=== PATIENT | female | born 1940 | race Hispanic/Latino ===

== ENCOUNTER 2017-10-04 14:04 | Outpatient (CLI) | payer MEDICARE ==
--- NOTE | 2017-10-08 11:14 | Magnetic Resonance Report ---
BILATERAL BREAST MRI WITHOUT AND WITH CONTRAST: 10/04/17 14:04:00 CLINICAL: Breast cancer survivor status post right partial mastectomy. A right asymmetry on recent screening mammogram. COMPARISON:09/11/17 bilateral screening mammogram. TECHNIQUE: Axial 1.0-mm T1 without, axial high resolution 2.0-mm T2 and axial 1.0-mm dynamic Vibrant high-resolution postcontrast T1 fat saturation sequences on a 1.5 Era magnet. The examination was performed with an 8 channel dedicated Sent[employer]elle breast coil. Post processing with CAD and subtraction was performed on an [employer] workstation. 17.0 cc of Multihance was injected without incident for the contrast portion of the exam. Consent was obtained prior to the administration of the contrast. FINDINGS: Right: Mild background parenchymal enhancement. No mass or suspicious enhancement. Moderate periareolar and inferior skin thickening (4 mm) and moderate diffuse edema of the breast. No suspicious right axillary or right internal mammary lymph nodes. Left: Mild background parenchymal enhancement. Focal irregular non-Mass enhancement in the central breast approximately 7 cm from the nipple measures 8.9 x 4.1 x 2.4 mm. It demonstrates heterogeneous enhancement with mixed kinetics, 176% peak enhancement and 39% type III washout. No other mass or suspicious enhancement. No suspicious left axillary or left internal mammary lymph nodes. IMPRESSION: 1. Benign lymphedema of the right breast and no suspicious lesion of the right breast. 2. Suspicious 9 mm focal non-Mass enhancement in the central left breast. Recommend MRI guided needle biopsy of the left breast. RIGHT BI-RADS 2 -- Benign LEFT BI-RADS 4 -- Suspicious
== END 2017-10-04 14:05 | disposition home or self-care (01) ==
LOC: SPVIMAG 14:04
PROVIDERS: ATTEND Surgery
DX: R92.2 Inconclusive mammogram (principal); Z85.3 Personal history of malignant neoplasm of breast; Z90.11 Acquired absence of right breast and nipple
CPT/HCPCS: A9577; C8908; 77059

== ENCOUNTER 2017-11-19 10:44 | Outpatient (CLI) | payer MEDICARE, OTHER ==
--- NOTE | 2017-11-19 13:30 | Mammography Report ---
LEFT DIGITAL DIAGNOSTIC MAMMOGRAM: CLINICAL: For clip placement immediately status post MRI biopsy. COMPARISON:09/20/16 FINDINGS: A biopsy clip is now identified and correlates with the site of the MRI biopsy. IMPRESSION: Concordant clip placement status post MRI biopsy. BI-RADS CATEGORY: 4--Suspicious Pathology pending.
--- NOTE | 2017-11-19 14:34 | Magnetic Resonance Report ---
MRI GUIDED VACUUM ASSISTED CORE BIOPSY LEFT BREAST: 11/19/17 10:44:00 CLINICAL: A single suspicious lesion identified on recent MRI. COMPARISON: MRI breast bilateral 10/04/17 FINDINGS: Consent for the procedure was obtained. A Vibrant dynamic postcontrast series was performed on a 1.5 Era magnet using an 8 channel Sentinelle dedicated breast coil. The lesion was localized and targeted using [employer] Sentinelle biopsy software. The skin was anesthetized with 1% lidocaine and a small dermatotomy was made. 2% lidocaine was administered for deeper anesthesia. 9-G biopsy was performed with an Manga Corta vacuum assisted device. Imaging demonstrated satisfactory positioning of the probe and samples were obtained. A clip was deployed after confirmation of adequate sampling. The probe was removed and hemostasis was achieved with pressure to the site. A sterile dressing was applied. The patient tolerated the procedure well and there were no apparent complications. A two view mammogram demonstrated concordant clip placement. The patient left the department in good condition with instructions for wound care and follow-up. IMPRESSION: Uncomplicated MRI biopsy with clip placement left breast.
== END 2017-11-19 10:45 | disposition home or self-care (01) ==
LOC: SPVIMAG 10:44
PROVIDERS: ATTEND Surgery
DX: N64.89 Other specified disorders of breast (principal); Z80.3 Family history of malignant neoplasm of breast
CPT/HCPCS: 19085; 77065; A9577

== ENCOUNTER 2018-01-24 06:47 | Day surgery (SDC) | payer MEDICARE, OTHER ==
[2018-01-22 11:25] LABS: Basophils # (Auto) 0.1 K/mm3 (0.0-0.1); Basophils % (Auto) 0.8 % (0.0-1.8); Eosinophils # (Auto) 0.1 K/mm3 (0.0-0.4); Eosinophils % (Auto) 2.1 % (0.0-4.3); Hematocrit 41.5 % (30.3-42.9); Hemoglobin 14.1 gm/dl (10.1-14.3); Lymphocytes # (Auto) 1.7 K/mm3 (1.2-5.4); Lymphocytes % (Auto) 25.4 % (13.4-35.0); Mean Corpuscular HGB Conc 34 % (30-34); Mean Corpuscular Hemoglobin 34 pg (28-32); Mean Corpuscular Volume 99 fl (79-97); Monocytes # (Auto) 0.5 K/mm3 (0.0-0.8); Monocytes % (Auto) 7.8 % (0.0-7.3); Platelet Count 195 K/mm3 (140-440); Red Blood Count 4.19 M/mm3 (3.65-5.03); Red Cell Distribution Width 14.4 % (13.2-15.2)
[2018-01-22 11:42] LABS: Alanine Aminotransferase 14 units/L (7-56); Albumin 3.7 g/dL (3.9-5); BUN/Creatinine Ratio 19; Blood Urea Nitrogen 15 mg/dL (7-17); Calcium 8.8 mg/dL (8.4-10.2); Hemolysis Index 39
--- NOTE | 2018-01-22 12:36 | XRay Report ---
ROUTINE CHEST, TWO VIEWS: HISTORY: Presurgical advance age. The trachea, heart, mediastinal contour, lung fletcher and bony thorax are unremarkable. Surgical clips in the right axilla are noted. IMPRESSION: No acute process.
[2018-01-24] MEDS ORDERED: XYLOCAINE 1% 20 mL INFILTRATI NR (07:53)
[2018-01-24] MEDS ORDERED: XYLOCAINE 1% 20 mL ONE (07:57)
[2018-01-24] MEDS ORDERED: SUBLIMAZE IV NR (08:02)
[2018-01-24] MEDS ORDERED: VERSED IV NR (09:00)
[2018-01-24] MEDS ORDERED: ANCEF/STERILE WATER 2 GM/20 ML IV NR (09:00)
[2018-01-24] MEDS ORDERED: DILAUDID IV PRN (09:07)
--- NOTE | 2018-01-24 09:07 | Anesthesia Day of Surgery ---
Anesthesia Day of Surgery - Day of Surgery Patient Examined: Yes Patient H&P Reviewed: Yes Patient is NPO: Yes
--- NOTE | 2018-01-24 09:07 | Anesthesia Consultation ---
Anesthesia Consult and Med Hx Date of service: 01/24/18 - Pre-Operative Health Status ASA Pre-Surgery Classification: ASA2 Proposed Anesthetic Plan: General Nerve Block: PEC - Pulmonary Hx Smoking: No Hx Asthma: Yes (childhood; asymptomatic as an adult) SOB: No - Cardiovascular System Hx Hypertension: No Hx Heart Attack/AMI: No Hx Percutaneous Transluminal Coronary Angioplasty (PTCA): No Hx Cardia Arrhythmia: No - Central Nervous System Hx Seizures: No CVA: No - Gastrointestinal Hx Gastroesophageal Reflux Disease: No - Endocrine Hx Renal Disease: No Hx Liver Disease: No Hx Insulin Dependent Diabetes: No Hx Thyroid Disease: No - Hematic Hx Anemia: No - Other Systems Hx Cancer: Yes (breast) - Additional Comments Anesthesia Medical History Comments: Will plan for preop PEC block for post op analgesia.
--- NOTE | 2018-01-24 09:19 | Mammography Report ---
NEEDLE LOCALIZATION AND HOOKWIRE PLACEMENT LEFT BREAST:01/24/18 CLINICAL: Left breast cancer. COMPARISON: 11/19/17 FINDINGS: Using mammographic guidance, 1% lidocaine local anesthesia and sterile technique, two 7.5 cm Azul needles with hookwires were placed from a CC from above approach to localize a lateral MRI biopsy clip and the more medial MRI biopsy site. Hookwires were deployed and the needles were removed. Satisfactory placement was confirmed by two orthogonal views. The patient tolerated the procedure well and there were no apparent complications. IMPRESSION: Uncomplicated placement of hookwires left breast.
[2018-01-24] MEDS ORDERED: DECADRON ONE (09:23)
[2018-01-24] MEDS: LACTATED RINGERS 1,000 ML IV SCH ×2 (09:30→11:30)
[2018-01-24] MEDS ORDERED: ZOFRAN ONE (12:01)
[2018-01-24] MEDS ORDERED: REGLAN ONE (12:01)
[2018-01-24] MEDS ORDERED: DIPRIVAN 10 MG/ML IV ONE (12:01)
[2018-01-24] MEDS ORDERED: XYLOCAINE MPF 2% ONE (12:01)
[2018-01-24] MEDS ORDERED: WATER FOR IRRIG STERILE IR ONE (12:15)
[2018-01-24] MEDS ORDERED: SUBLIMAZE ONE (12:31)
--- NOTE | 2018-01-24 14:50 | Mammography Report ---
SPECIMEN RADIOGRAPH LEFT BREAST: 01/24/18 06:47:00 CLINICAL: Surgical excision of known cancer. FINDINGS: The targeted biopsy clip and 2 hookwire are identified within the specimen. IMPRESSION: Excision of the targeted lesion.
[2018-01-24] MEDS ORDERED: NACL 0.9% 1000 ML 1,000 ML ONE (14:52)
--- NOTE | 2018-01-24 15:02 | Short Stay Summary ---
Short Stay Documentation Date of service: 01/24/18 - History H&P: obtained from office - Allergies and Medications Current Medications: Allergies No Known Allergies Allergy (Verified 01/21/18 16:42) Home Medications Medication Instructions Recorded Confirmed Last Taken Type Raloxifene HCl 60 mg PO DAILY 01/21/18 01/24/18 01/21/18 History HYDROcodone/APAP 5-325 [Spencer 1 each PO Q6HR PRN #30 tablet 01/24/18 Unknown Rx 5/325] Active Medications Cefazolin Sodium (Ancef/Sterile Water 2 Gm/20 Ml) 2 gm IV PREOP NR Stop: 01/24/18 20:00 Fentanyl (Sublimaze) 100 mcg IV ONCE NR Stop: 01/24/18 15:00 Last Admin: 01/24/18 09:51 Dose: 50 mcg Hydromorphone HCl (Dilaudid) 0.25 mg IV Q10MIN PRN PRN Reason: Pain, Moderate (4-6) Stop: 01/24/18 15:00 Lactated Ringer's (Lactated Ringers) 1,000 mls @ 100 mls/hr IV DIRECT KOKO Last Admin: 01/24/18 11:30 Dose: 100 mls/hr Midazolam HCl (Versed) 2 mg IV PREOP NR Stop: 01/24/18 23:59 Last Admin: 01/24/18 09:50 Dose: 2 mg - Brief post op/procedure progress note Date of procedure: 01/24/18 Pre-op diagnosis: Left breast cancer of the upper outer quadrant Post-op diagnosis: same Procedure: Left needle localization partial mastectomy with SLNB Anesthesia: GETA Findings: Wire and clip present; 1 SLN Surgeon: BRUNA DECKER Estimated blood loss: minimal Pathology: list (partial mastectomy, x1SLN) Specimen disposition: to lab Condition: stable - Disposition Condition at discharge: Good Disposition: DC- TO HOME OR SELFCARE Short Stay Discharge Plan Activity: other (no heavy lifting) Wound: other (keep incision clean and dry; may shower in 48 hours; no baths, pools or lakes; do not rub or scrub incision) Follow up with: SEGUN PARADA MD [Primary Care Provider] - 7 Days BRUNA DECKER MD [Staff Physician] - 7 Days Prescriptions: HYDROcodone/APAP 5-325 [Spencer 5/325] 1 each PO Q6HR PRN #30 tablet PRN Reason: Pain
--- NOTE | 2018-01-24 15:07 | Operative Report ---
Operative Report Operative Report: January 24, 2018 Preoperative diagnosis: Left breast cancer of the upper outer quadrant Postoperative diagnosis: Same Procedure: Left partial mastectomy of the upper outer quadrant and SLNB Surgeon: Lucy Lainez MD Anesthesia: General Findings:Left clip present within radiograph specimen; x1 SLN Complications: None EBL: Minimal Disposition: PACU in good condition Indications for operative procedure: This is a 77 year old lady with newly diagnosed left breast cancer of the upper outer quadrant, Stage I [id number] and personal history of right breast cancer. Recommendations are to proceed with breast conservation. She understands the role of adjuvant radiation therapy if recommended. She wished to proceed with the above procedure. Procedure in detail: Patient was taken to radiology for needle localization of ILCA. Anesthesia placed left pectoral block. Patient was then taken to the operating room. Gen. anesthesia was administered. The left nipple was injected with radioisotope. The left breast and axilla were prepped and draped in the normal sterile operative fashion. Timeout was performed. Gamma probe was inserted into the axilla. The area of hot spot was identified. A left axillary incision was made with a 15 blade knife with dissection taken down to the subcutaneous tissues. The axillary fascia was opened with the Bovie cautery. One SLN was identified. All remaining counts were less than 10% of the highest count. Lymph node was sent to pathology for permanent processing. Hemostasis was obtained in the left axillary cavity. Axillary cavity was appropriately irrigated and suctioned. Hemostasis was noted. Axillary fascia was approximated and closed using interrupted 3-0 Vicryl and the skin brought together and closed using a running 4-0 Monocryl followed by skin affix. Attention was then taken towards the left breast. The wires were noted. A breast incision was made with a 15 blade knife and dissection taken down to subcutaneous tissues with removal of the wires cephalad. First began raising superior/cephalad flap with dissection take down to the pectoralis muscle, followed by raising of the inferior flap,medial flap and lateral flap with all flaps taken down to the pectoralis muscle. The breast area of concern was appropriately removed posteriorly from the pectoralis muscle with the aid of the Bovie cautery. The wires were not encountered. Specimen was marked and then sent to pathology and radiology; radiograph specimen with wires and clip present. Breast cavity was irrigated and hemostasis was obtained. The posterior deep breast tissues were approximated and closed using interrupted 3-0 Vicryl. The subcutaneous tissues were approximated and closed using interrupted 3-0 Vicryl followed by closing of the skin with a running 4-0 Monocryl and skin affix. The patient tolerated surgery very well and she was awaken from anesthesia without any complication and transported to PACU in good condition.
[2018-01-24 17:05] VITALS: BP 111/63
== END 2018-01-24 16:50 | disposition home or self-care (01) ==
LOC: OR 06:47
PROVIDERS: ATTEND Surgery
DX: C50.412 Malignant neoplasm of upper-outer quadrant of left female breast (principal); M19.90 Unspecified osteoarthritis, unspecified site; J45.909 Unspecified asthma, uncomplicated; Z79.899 Other long term (current) drug therapy; Z96.643 Presence of artificial hip joint, bilateral; Z90.11 Acquired absence of right breast and nipple; Z85.3 Personal history of malignant neoplasm of breast; Z17.0 Estrogen receptor positive status [ER+]; Z98.890 Other specified postprocedural states; Z80.3 Family history of malignant neoplasm of breast
CPT/HCPCS: 19281; 19282; 19302; 36415; 64450; 71046; 76098; 78800; 80053; 82962; 85025; 88307; 88333; 88342; A9541; J0690; J0735; J1100; J2250; J2405; J2704; J2765; J3010; J7030; J7120